=== PATIENT | female | born 1990 | race Two or more races ===

== ENCOUNTER 2023-04-05 12:59 | Emergency (ER) | payer MEDICAID ==
[~2023-04-05] VITALS: Ht 157.5 cm; Wt 67.0 kg
[2023-04-05 13:25] VITALS: TEMP 98.8
[2023-04-05] MEDS ORDERED: BACLOFEN 10 MG TABLET PO ONE (15:00)
[2023-04-05] MEDS ORDERED: IBUPROFEN 600 MG TABLET PO ONE (15:00)
[2023-04-05] MEDS ORDERED: LIDOCAINE 5% TRANSDERMAL PATCH TD ONE (15:00)
[2023-04-05 15:39] VITALS: BP 134/68; PULSE 68; RESP 16
[2023-04-05] MEDS ORDERED: LIDO700A15 TP (16:09)
[2023-04-05] MEDS ORDERED: BACL10TA PO (16:10)
[2023-04-05] MEDS ORDERED: IBUP-1492 PO (16:22)
== END 2023-04-05 16:39 | disposition home or self-care (01) ==
LOC: EMS 13:04
DX: M54.2 Cervicalgia (principal); M79.604 Pain in right leg; Z98.890 Other specified postprocedural states; Y04.8XXA Assault by other bodily force, initial encounter; Y93.89 Activity, other specified; Y92.89 Other specified places as the place of occurrence of the external cause; Y99.8 Other external cause status
CPT/HCPCS: 72040; 99284; 73590-TC; Z7502; Z7610